=== PATIENT | male | born 1995 | race Caucasian/White ===

== ENCOUNTER 2018-06-10 01:26 | Emergency (ER) | payer OTHER ==
[~2018-06-10] VITALS: Ht 175.3 cm; Wt 70.5 kg
[2018-06-10] MEDS ORDERED: MOBIC15 MG PO (01:30)
[2018-06-10] MEDS ORDERED: NORCO 325 MG-51 TAB PO (01:31)
[2018-06-10 03:54] VITALS: BP 125/84; PULSE 86
== END 2018-06-10 03:50 | disposition home or self-care (01) ==
LOC: COL.ER 01:26
DX: R04.1 Hemorrhage from throat (principal)
CPT/HCPCS: J7030

== ENCOUNTER 2018-06-24 02:31 | Emergency (ER) | payer OTHER ==
[~2018-06-24] VITALS: Ht 175.3 cm; Wt 70.5 kg
[~2018-06-24 02:31] MED LIST: MOBIC15 MG PO; NORCO 325 MG-51 TAB PO
[2018-06-24 02:37] VITALS: BP 127/77; TEMP 100.2
[2018-06-24] MEDS ORDERED: CEPHALEXIN500 M1 PO (03:57)
[2018-06-24] MEDS ORDERED: MAGIC MOUTH PO (03:59)
[2018-06-24 04:30] VITALS: PULSE 102
== END 2018-06-24 04:30 | disposition home or self-care (01) ==
LOC: COL.ER 02:31
DX: J02.0 Streptococcal pharyngitis (principal)
CPT/HCPCS: J1885; J8540